=== PATIENT | male | born 1955 | race Caucasian/White ===

== ENCOUNTER 2016-11-24 22:34 | Emergency (ER) | payer MEDICAID, OTHER ==
[2016-11-24 22:34] VITALS: BMI 26.5
[2016-11-24 22:44] VITALS: BP 162/90; PULSE 82; RESP 20; TEMP 97.7; O2SAT 98
--- NOTE | 2016-11-24 23:44 | C.PDOC ---
History Of Present Illness 60 year old male with a Hx of chronic hemorrhoids who presents to the ER with a complaint of rectal pain.Patient states she has been using percocet, stool softener, and hemorrhoid cream with no relief to pain. Patient has an appointment with a colorectal surgeon on 12/09; however, feels he cannot wait, is requesting evaluation and medication for symptoms. Denies rectal bleeding, diarrhea, or constipation. Time Seen by Provider: 11/24/16 22:59 Chief Complaint (Nursing): Male Genitourinary History Per: Patient History/Exam Limitations: no limitations Onset/Duration Of Symptoms: Days Current Symptoms Are (Timing): Still Present Quality Of Discomfort: Unable To Describe Associated Symptoms: denies: Diarrhea, Constipation Alleviating Factors: None Recent travel outside of the [place]: No Past Medical History Reviewed: Historical Data, Nursing Documentation, Vital Signs Vital Signs: Last Vital Signs Temp 97.7 F 11/24/16 22:35 Pulse 82 11/24/16 22:35 Resp 20 11/24/16 22:35 BP 162/90 H 11/24/16 22:35 Pulse Ox 98 11/25/16 01:26 - Medical History PMH: Back Problems, HTN, Hypercholesterolemia, Migraine Surgical History: No Surg Hx Family History: States: Unknown Family Hx - Social History Hx Tobacco Use: No Hx Alcohol Use: No Hx Substance Use: No - Immunization History Hx Tetanus Toxoid Vaccination: No Hx Influenza Vaccination: No Hx Pneumococcal Vaccination: No Review Of Systems Gastrointestinal: Positive for: Rectal Pain. Negative for: Diarrhea, Melena, Hematochezia Physical Exam - Physical Exam Appears: Non-toxic Skin: Normal Color, Warm, Dry Head: Atraumatic, Normacephalic Eye(s): bilateral: Normal Inspection Oral Mucosa: Moist Cardiovascular: Rhythm Regular, No Murmur Respiratory: Normal Breath Sounds, No Rales, No Rhonchi, No Wheezing Gastrointestinal/Abdominal: Soft, No Tenderness Rectal: No Blood Streaked Stool, Hemorrhoids (External, nonthrombosed), No Other (Bleeding, swelling, mass) Neurological/Psych: Oriented x3, Normal Speech, Normal Cognition ED Course And Treatment O2 Sat by Pulse Oximetry: 98 (Room air) Pulse Ox Interpretation: Normal Progress Note: Toradol administered. Patient advised to eat a lot of fiber and to continue use of stool softener. Patient given Rx for rectal suppository and instucted to follow up with appointment as scheduled. Disposition Counseled Patient/Family Regarding: Diagnosis, Need For Followup, Rx Given - Disposition Disposition: HOME/ ROUTINE Disposition Time: 23:41 Condition: STABLE Additional Instructions: Please follow up with PMD DO SITZ baths Use suppositories Return to ER if worse Prescriptions: Hydrocortisone [Anusol-HC] 25 mg RC BID #20 sup Instructions: Hemorrhoids (ED) Forms: [facility] (Maltese) Print Language: ANGOLAN - Clinical Impression Clinical Impression: Hemorrhoids - Scribe Statement The provider has reviewed the documentation as recorded by the Scribe Ray Ledezma All medical record entries made by the Domenicaibbrenton were at my direction and personally dictated by me. I have reviewed the chart and agree that the record accurately reflects my personal performance of the history, physical exam, medical decision making, and the department course for this patient. I have also personally directed, reviewed, and agree with the discharge instructions and disposition.
== END 2016-11-25 00:20 | disposition home or self-care (01) ==
LOC: C.ER 22:34
DX: K64.9 Unspecified hemorrhoids (principal)
CPT/HCPCS: 96372; 99283; J1885

== ENCOUNTER 2017-12-14 08:16 | Day surgery (SDC) | payer OTHER ==
[2017-12-14] MEDS ORDERED: Bupivacaine-Epi 0.5%-1:200,000 PF Inj ONE (10:09)
[2017-12-14] MEDS ORDERED: Midazolam 2 MG/2 ML VIAL ONE (10:24)
[2017-12-14] MEDS ORDERED: Propofol 10 mg/ml Inj (20 ML) ONE (10:24)
[2017-12-14] MEDS ORDERED: ceFAZolin IV 1 gm in Dextrose 1 GM/50 ML BAG IVPB ONE (10:33)
[2017-12-14] MEDS ORDERED: HYDROmorphone 0.5 mg/0.5 ml ISec IVP PRN (11:18)
[2017-12-14] MEDS ORDERED: HYDROmorphone 0.5 mg/0.5 ml ISec ONE (11:19)
[2017-12-14] MEDS ORDERED: Lactated Ringer's 1,000 ML IV SCH (11:30)
[2017-12-14 12:19] VITALS: PULSE 55
[2017-12-14 12:23] VITALS: RESP 16; TEMP 97.6
[2017-12-14 15:47] VITALS: BP 147/85; O2SAT 100
--- NOTE | 2017-12-14 19:37 | OP ---
Copied To: Rafael Hansen MD Attending MD: Rafael Hansen MD PROCEDURE DATE: 12/14/2017 PREOPERATIVE DIAGNOSIS: A large lipomatous mass, base of neck posteriorly. POSTOPERATIVE DIAGNOSIS: A large lipoma. PROCEDURE PERFORMED: Excision. FINDINGS: This patient has been complaining of some pain on the shoulder going down to the arm and he associates this with a relatively large mass, measuring approximately 4 x 4 cm in size, located on the base of the neck posteriorly overlying the trapezius muscle. DESCRIPTION OF PROCEDURE: Under local anesthesia, utilizing lidocaine 2% with IV sedation, the patient was prepared and draped in usual sterile fashion. About 3 inch incision was made over the mass, extended down to subcutaneous tissue. Bleeding was controlled with electrocautery. The mass was then identified. It was dissected free and it was extracted, getting it off the superficial portion of the trapezius muscle on the right side. Bleeding was controlled with pressure and electrocautery, and then, the wound was then closed utilizing multiple interrupted sutures of 2-0 Vicryl to obliterate the space and then the skin was closed with multiple skin marisol. The estimated blood loss about 200 mL. The patient tolerated the procedure well, and left the operating room in good condition. Rafael Hansen MD
== END 2017-12-14 14:30 | disposition home or self-care (01) ==
LOC: C.SDS 08:16
PROVIDERS: ATTEND Surgery
DX: D17.1 Benign lipomatous neoplasm of skin and subcutaneous tissue of trunk (principal)
CPT/HCPCS: 11424; 88304; J0690; J1170; J2250; J2704; J3010

== ENCOUNTER 2017-12-20 12:21 | Observation (INO) | payer OTHER ==
[2017-12-20 12:21] VITALS: BMI 26.5
[2017-12-20 13:52] LABS: BASO % 0.2 % (0.0-2.0); EOS % 0.2 % (0.0-4.0); HEMOGLOBIN 14.3 g/dL (12.0-18.0); LYMPH # 0.8 K/uL (1.0-4.3); MEAN CELL VOLUME 92.8 fL (80.0-94.0); MEAN CORPUSCULAR HEMOGLOBIN 32.3 pg (27.0-31.0); MEAN CORPUSCULAR HGB CONC 34.8 g/dL (33.0-37.0); MEAN PLATELET VOLUME 8.4 fL (7.2-11.7); MONO # 0.9 K/uL (0.0-0.8); MONO % 6.7 % (0.0-10.0); NEUT # 11.8 K/uL (1.8-7.0); NEUT % 86.9 % (50.0-75.0); PLATELET COUNT 227 K/uL (130-400); RBC 4.41 Mil/uL (4.40-5.90); RED CELL DISTRIBUTION WIDTH 13.1 % (11.5-14.5)
[2017-12-20 13:53] LABS: WHITE BLOOD COUNT 13.5 K/uL (4.8-10.8)
--- NOTE | 2017-12-20 13:53 | C.PDOC ---
History Of Present Illness 61 year old male with a history of HTN presents to the emergency department with complaints of feeling dizzy, lightheaded, near-syncope, and having chest pain. Patient states that he was walking on his way to visit a doctor for a wound check on the back of his neck, however when he started experiencing these symptoms he decided to go back home. Patient states that once he arrived home he began experiencing chest pain. He has no complaints at this moment. Patient states that he had marisol placed in the back of his neck five days ago. Time Seen by Provider: 12/20/17 13:04 Chief Complaint (Nursing): Syncope History/Exam Limitations: no limitations Onset/Duration Of Symptoms: Hrs Current Symptoms Are (Timing): Still Present Activity At Onset Of Symptoms: Walking Associated Symptoms Preceding Syncopal Episode: Lightheadedness, Other ( dizziness) Seizure Or Post-ictal Symptoms: None Past Medical History Reviewed: Historical Data, Nursing Documentation, Vital Signs Vital Signs: Last Vital Signs Temp 97.6 F 12/21/17 07:15 Pulse 64 12/21/17 07:18 Resp 20 12/21/17 07:15 BP 101/63 12/21/17 07:15 Pulse Ox 98 12/21/17 08:00 - Medical History PMH: Back Problems, Depression, HTN, Hypercholesterolemia, Migraine Denies: Chronic Kidney Disease Surgical History: No Surg Hx Family History: States: No Known Family Hx - Social History Hx Tobacco Use: No Hx Alcohol Use: No Hx Substance Use: No - Immunization History Hx Tetanus Toxoid Vaccination: No Hx Influenza Vaccination: No Hx Pneumococcal Vaccination: No Review Of Systems Except As Marked, All Systems Reviewed And Found Negative. Cardiovascular: Positive for: Chest Pain Neurological: Positive for: Dizziness, Other (lightheaded) Physical Exam - Physical Exam Appears: Non-toxic, No Acute Distress Skin: Warm, Dry Head: Atraumatic, Normacephalic Eye(s): bilateral: Normal Inspection Neck: Supple, Other (5 marisol placed in posterior neck, site is clear, dry, intact) Chest: Symmetrical Cardiovascular: Rhythm Regular, No Murmur Respiratory: Normal Breath Sounds, No Rales, No Rhonchi, No Wheezing Extremity: Normal ROM Neurological/Psych: Oriented x3, Normal Speech, Normal Cognition ED Course And Treatment - Laboratory Results Result Diagrams: 12/21/17 07:06 12/21/17 07:06 O2 Sat by Pulse Oximetry: 99 (RA) Pulse Ox Interpretation: Normal Medical Decision Making Medical Decision Making: Assessment: Near Syncope Plan: CT Head w/o Contrast EKG BNP CMP Magnesium TSH Troponin CBC CXR One View Urinalysis Disposition - Disposition Disposition: HOSPITALIZED Disposition Time: 10:00 Condition: FAIR - Clinical Impression Clinical Impression: Syncope - Scribe Statement The provider has reviewed the documentation as recorded by the Scribe (Matthew Bashir) Provider Attestation: All medical record entries made by the Scribe were at my direction and personally dictated by me. I have reviewed the chart and agree that the record accurately reflects my personal performance of the history, physical exam, medical decision making, and the department course for this patient. I have also personally directed, reviewed, and agree with the discharge instructions and disposition.
[2017-12-20 14:03] LABS: ALB/GLOB RATIO 1.5 (1.0-2.1); ALBUMIN 4.3 g/dL (3.5-5.0); ALT/SGPT 38 U/L (21-72); AST/SGOT 30 U/L (17-59); BLOOD UREA NITROGEN 13 mg/dL (9-20); CALCIUM 9.3 mg/dl (8.6-10.4); GFR NON-AFRICAN AMERICAN > 60
[2017-12-20 14:16] LABS: B-TYPE NATRIURETIC PEPTIDE 43.6 pg/mL (0-900)
--- NOTE | 2017-12-20 14:34 | CT ---
Date of service: 12/20/2017 PROCEDURE: CT HEAD WITHOUT CONTRAST. HISTORY: dizziness COMPARISON: 12/30/2015 TECHNIQUE: Axial computed tomography images were obtained through the head/brain without intravenous contrast. Radiation dose: Total exam DLP = 856.48 mGy-cm. This CT exam was performed using one or more of the following dose reduction techniques: Automated exposure control, adjustment of the mA and/or kV according to patient size, and/or use of iterative reconstruction technique. FINDINGS: HEMORRHAGE: No intracranial hemorrhage. BRAIN: No mass effect or edema. No atrophy or chronic microvascular ischemic changes. VENTRICLES: Unremarkable. No hydrocephalus. CALVARIUM: Unremarkable. PARANASAL SINUSES: Unremarkable as visualized. No significant inflammatory changes. MASTOID AIR CELLS: Unremarkable as visualized. No inflammatory changes. OTHER FINDINGS: None. IMPRESSION: Normal CT of the Head. No intracranial mass, hemorrhage or evidence of acute infarct.
[2017-12-20 14:46] LABS: BANDS 4 % (0-2); LYMPHOCYTE 4 % (20-40); MONOCYTE 7 % (0-10); NEUTROPHIL 85 % (50-75); PLATELET ESTIMATE NORMAL (NORMAL); TOTAL CELLS COUNTED 100
--- NOTE | 2017-12-20 15:05 | RAD ---
Date of service: 12/20/2017 PROCEDURE: CHEST RADIOGRAPH, 1 VIEW HISTORY: SOB COMPARISON: 06/14/2016 FINDINGS: LUNGS: The left costophrenic angle is more clearly defined on the current study. Some chronic minimal left inferolateral pleural thickening is possible. No interval suspect pathology here suggested. PLEURA: No pneumothorax. CARDIOVASCULAR: Minimal left ventricular enlargement suspect. OSSEOUS STRUCTURES: Thoracic spondylosis. Bilateral shoulder arthrosis. VISUALIZED UPPER ABDOMEN: Normal. OTHER FINDINGS: At least 3 punctate hyperdensities project over the left knee lateral and inferior harleen thorax possible foreign body pieces-not significantly changed dating back to 2014. IMPRESSION: No interval pathology noted.
--- NOTE | 2017-12-20 15:13 | CP.PCM.HP ---
History of Present Illness - History of Present Illness History of Present Illness: H&P 61 year old male with past medical history of HTN, HLD presented to hospital for chest pain with exertion. Patient was walking to a doctor's appointment when he developed sudden dizziness, lightheadedness. He decided to return back home and by the time he got there, he developed chest pain. Patient then called the ambulance and was brought to ED. Patient describes CP as sharp pain located on left side of chest and radiated to back. CP was accompanied with diaphoresis. CP resolved by the time he came to ED. Patient described the dizziness as the room was spinning. Patient denied having any syncope. Patient denied having any new numbness/tingling in extremities, focal weakness, headache, confusion, difficulty walking, difficulty with speech. Patient states that he was walking to Dr. Hansen's clinic for a wound check for a lipoma removal surgery he had done recently. Currently, pt denies having any CP, SOB, abd pain, N/V/D/C, F/C, HUANG, weakness/ numbness/tingling in extremities, change sin vision or hearing. PMHx: stated above Sx: neck lipoma removal by Dr. Hansen on 12/14/17. Left shoulder lipoma removal 2015 Social:Denies tobacco, ETOH or drug use PMD: Dr. Sultana Martinez Med: Flomaz 0.4 mg po qd, Ketotifen eye drops, Benazepril 20 mg po qd, Cymbalta 30 mg po qd, Fioricet 1 qd, lipitro 20 mg po qd, omperazole 20 mg po qd, mirtazapine 15 mg po qd, gabapentin 300 mg po qd multivitamin qd [facility] Present on Admission - Present on Admission Any Indicators Present on Admission: No Review of Systems - Constitutional Constitutional: absent: Chills, Fever - EENT Eyes: absent: Blurred Vision, Change in Vision Ears: absent: Decreased Hearing, Dizziness Nose/Mouth/Throat: absent: Nasal Congestion, Nasal Discharge, Sore Throat - Cardiovascular Cardiovascular: Chest Pain, Diaphoresis, Lightheadedness. absent: Chest Pain at Rest, Dyspnea, Leg Edema, Palpitations, Pedal Edema - Respiratory Respiratory: absent: Cough, Dyspnea, Wheezing, Chest Congestion, Pain with Coughing - Gastrointestinal Gastrointestinal: absent: Abdominal Pain, Constipation, Diarrhea, Nausea, Vomiting - Genitourinary Genitourinary: absent: Dysuria, Urinary Frequency, Urinary Urgency - Musculoskeletal Musculoskeletal: Neck Pain (at wound site ). absent: Stiffness, Tingling - Integumentary Integumentary: Wounds (surgical wound on neck on left side ) - Neurological Neurological: Vertigo. absent: Abnormal Gait, Abnormal Hearing, Abnormal Movements, Abnormal Speech, Confusion, Dizziness, Numbness, Headaches, Paresthesias, Sensory Deficit, Syncope, Tingling, Weakness - Psychiatric Psychiatric: absent: Anxiety, Depression Past Patient History - Past Medical History & Family History Past Medical History?: Yes - Past Social History Smoking Status: Never Smoked Chewing Tobacco Use: No Cigar Use: No Alcohol: None Drugs: Denies - CARDIAC Hx Hypercholesterolemia: Yes Hx Hypertension: Yes - PULMONARY Hx Respiratory Disorders: No - NEUROLOGICAL Hx Migraine: Yes - HEENT Hx HEENT Problems: No - RENAL Hx Chronic Kidney Disease: No - ENDOCRINE/METABOLIC Hx Endocrine Disorders: No - HEMATOLOGICAL/ONCOLOGICAL Hx Blood Disorders: No - INTEGUMENTARY Hx Dermatological Problems: Yes Other/Comment: HX: LARGE MASS LEFT SHOULDER. HX: LARGE MASS RIGHT SHOULDER - MUSCULOSKELETAL/RHEUMATOLOGICAL Hx Musculoskeletal Disorders: Yes Hx Back Pain: Yes Hx Falls: No - GASTROINTESTINAL Hx Gastrointestinal Disorders: No - GENITOURINARY/GYNECOLOGICAL Hx Genitourinary Disorders: Yes Hx Prostate Problems: Yes (ENLARGED PROSTATE) - PSYCHIATRIC Hx Depression: Yes Hx Substance Use: No - SURGICAL HISTORY Hx Surgeries: Yes Other/Comment: 05/22/2015, LEFT SHOULDER LYPOMA REMOVED BY DR. HANSEN - ANESTHESIA Hx Anesthesia: Yes Hx Anesthesia Reactions: No Hx Malignant Hyperthermia: No Meds Allergies/Adverse Reactions: Allergies Allergy/AdvReac Type Severity Reaction Status Date / Time No Known Allergies Allergy Verified 12/20/17 12:30 Physical Exam - Constitutional Appears: Non-toxic, No Acute Distress - Head Exam Head Exam: ATRAUMATIC, NORMOCEPHALIC - Eye Exam Eye Exam: EOMI Pupil Exam: NORMAL ACCOMODATION, PERRL - ENT Exam ENT Exam: Mucous Membranes Moist - Respiratory Exam Respiratory Exam: Clear to Auscultation Bilateral. absent: Accessory Muscle Use , Rales, Rhonchi, Wheezes, Respiratory Distress - Cardiovascular Exam Cardiovascular Exam: REGULAR RHYTHM, +S1, +S2. absent: Diastolic murmur, Gallop , Rubs, Systolic Murmur - GI/Abdominal Exam GI & Abdominal Exam: Normal Bowel Sounds, Soft. absent: Distended, Firm, Guarding, Rigid, Tenderness - Extremities Exam Extremities exam: Negative for: pedal edema, tenderness - Neurological Exam Neurological exam: Alert, CN II-XII Intact, Normal Gait, Oriented x3, Reflexes Normal - Psychiatric Exam Psychiatric exam: Normal Affect, Normal Mood - Skin Skin Exam: Dry, Intact, Normal Color, Warm Additional comments: left sided neck wound in tact. no erythema no swelling. marisol in place. Results - Vital Signs Recent Vital Signs: Last Vital Signs Temp 98.4 F 12/20/17 12:30 Pulse 77 12/20/17 12:30 Resp 20 12/20/17 12:30 BP 133/88 12/20/17 12:30 Pulse Ox 99 12/20/17 14:00 - Labs Result Diagrams: 12/20/17 13:48 12/20/17 13:48 Labs: Laboratory Results - last 24 hr 12/20/17 12/20/17 13:48 13:48 WBC 13.5 H D RBC 4.41 Hgb 14.3 Hct 40.9 MCV 92.8 MCH 32.3 H MCHC 34.8 RDW 13.1 Plt Count 227 MPV 8.4 Neut % (Auto) 86.9 H Lymph % (Auto) 6.0 L Blackford % (Auto) 6.7 Eos % (Auto) 0.2 Baso % (Auto) 0.2 Neut # (Auto) 11.8 H Lymph # (Auto) 0.8 L Blackford # (Auto) 0.9 H Eos # (Auto) 0.0 Baso # (Auto) 0.0 Neutrophils % (Manual) 85 H Band Neutrophils % 4 H Lymphocytes % (Manual) 4 L Monocytes % (Manual) 7 Platelet Estimate Normal RBC Morphology Normal Sodium 142 Potassium 4.4 Chloride 106 Carbon Dioxide 25 Anion Gap 15 BUN 13 Creatinine 0.9 Est GFR ( Amer) > 60 Est GFR (Non-Af Amer) > 60 Random Glucose 113 H Calcium 9.3 Magnesium 1.8 Total Bilirubin 0.7 AST 30 ALT 38 Alkaline Phosphatase 80 Troponin I < 0.0120 NT-Pro-B Natriuret Pep 43.6 Total Protein 7.2 Albumin 4.3 Globulin 2.9 Albumin/Globulin Ratio 1.5 TSH 3rd Generation 1.01 Assessment & Plan - Assessment and Plan (Free Text) Assessment: 61 year old male with past medical history of HTN, HLD, depression, migraine headaches, cervical disc herniation BPH is admitted for vertigo and chest pain rule out ACS. CT scan on admission is normal. Initial troponins and EKG on admission were also normal. Vertigo - Patient's symptoms have resolved - Will check orthostatic vital signs - Will check cardiac enzymes and ekg x 3 and echo - will consider consulting neurology Chest pain r/u ACS - SAI score of 0 with 5% risk at day 14 of all cause mortality - Will check serial troponins and EKG. Initial trop and EKG was normal - Will check echo. - Echo from 2016 showed normal LV EF of 65% - Aspirin 325 stat - Nitro SL prn for angina HTN - Continue KEVAN inhibitor therapy with lisinopril 10 mg po qd HLD - Will check lipid panel and hgbA1c - Continue statin therapy with Crestor 10 mg po qd Depression - Continue home mirtazapine 15 mg po qd. However, due to side effect of hypotension, consider switching to different medication Migraine headaches - Will hold fioricet for now Neuropathy - Continue gabapentin 300 mg po hs BPH - Continue home medication flomax Prophylaxis - Pepcid 20 mg po bid - SCDs, heparin sc q12 Case will be discussed with attending, Dr. Dias. All orders and management per Dr. Dias - Date & Time Date: 12/20/17 Time: 16:33
[2017-12-20] MEDS ORDERED: Aspirin 325 mg EC Tablets PO STA (16:38)
[2017-12-20 20:01] LABS: CK-MB 1.31 ng/mL (0.0-3.38)
[2017-12-20 23:03] LABS: URINE BILIRUBIN NEGATIVE (NEGATIVE); URINE BLOOD NEGATIVE (NEGATIVE); URINE CLARITY Clear (Clear); URINE COLOR Yellow (YELLOW); URINE GLUCOSE (UA) NORMAL (Normal); URINE LEUKOCYTE ESTERASE NEG Leu/uL (Negative); URINE PROTEIN NEGATIVE (NEGATIVE); URINE UROBILINOGEN NORMAL mg/dL (0.2-1.0)
[2017-12-21 02:21] LABS: CK-MB 1.28 ng/mL (0.0-3.38)
[2017-12-21 07:28] LABS: BASO % 0.7 % (0.0-2.0); EOS # 0.1 K/uL (0.0-0.7); EOS % 2.6 % (0.0-4.0); HEMOGLOBIN 13.4 g/dL (12.0-18.0); MEAN CELL VOLUME 92.9 fL (80.0-94.0); MEAN CORPUSCULAR HEMOGLOBIN 32.8 pg (27.0-31.0); MEAN CORPUSCULAR HGB CONC 35.3 g/dL (33.0-37.0); MEAN PLATELET VOLUME 8.9 fL (7.2-11.7); MONO # 0.5 K/uL (0.0-0.8); MONO % 10.2 % (0.0-10.0); NEUT # 1.9 K/uL (1.8-7.0); NEUT % 41.5 % (50.0-75.0); NRBC % 0.1 % (0.0-2.0); RBC 4.09 Mil/uL (4.40-5.90)
[2017-12-21 07:34] LABS: WHITE BLOOD COUNT 4.5 K/uL (4.8-10.8)
[2017-12-21 07:41] LABS: ALB/GLOB RATIO 1.4 (1.0-2.1); ALBUMIN 3.5 g/dL (3.5-5.0); ALT/SGPT 39 U/L (21-72); AST/SGOT 26 U/L (17-59); BLOOD UREA NITROGEN 19 mg/dL (9-20); CALCIUM 9.1 mg/dl (8.6-10.4); GFR NON-AFRICAN AMERICAN > 60; HDL CHOLESTEROL 31 mg/dL (30-70)
[2017-12-21 07:46] LABS: LDL CHOLESTEROL 87 mg/dL (0-129)
--- NOTE | 2017-12-21 10:36 | CP.PCM.PN ---
Subjective - Date & Time of Evaluation Date of Evaluation: 12/21/17 Time of Evaluation: 09:30 - Subjective Subjective: PGY -1 Medicine Progress Note for Dr. Dias. Patient was seen and examined today at bedside. No acute events overnight and complaints. Patient reports feeling better today with no chest pain or dizziness. Patient just came back from his ECHO and reports having mild low back pain. Patient reports neck pain at the site of his surgery along with a mild headache. States surgery removed dressing this AM. Patient reports chronic left arm tingling from previous neck surgeries but no new numbness of tingling. Patient denies any shortness of breath, weakness, confusion or chest pain. Objective - Vital Signs/Intake and Output Vital Signs (last 24 hours): Temp Pulse Resp BP Pulse Ox 97.6 F 64 20 101/63 98 12/21/17 07:15 12/21/17 07:18 12/21/17 07:15 12/21/17 07:15 12/21/17 08:00 - Medications Medications: Current Medications Famotidine (Pepcid) 20 mg PO BID [facility] Last Admin: 12/21/17 10:16 Dose: 20 mg Gabapentin (Neurontin) 300 mg PO DAILY [facility] Last Admin: 12/21/17 10:15 Dose: 300 mg Heparin Sodium (Porcine) (Heparin) 5,000 units SC Q12 [facility] Last Admin: 12/21/17 10:14 Dose: 5,000 units Lisinopril (Zestril) 10 mg PO DAILY [facility] Last Admin: 12/21/17 10:16 Dose: Not Given Meclizine HCl (Antivert) 12.5 mg PO TID [facility] Last Admin: 12/21/17 10:16 Dose: 12.5 mg Mirtazapine (Remeron) 15 mg PO HS [facility] Last Admin: 12/20/17 21:18 Dose: 15 mg Nitroglycerin (Nitrostat Sl Tab) 0.4 mg SL Q5M PRN PRN Reason: Other, CHEST PAIN Rosuvastatin Calcium (Crestor) 10 mg PO HS [facility] Last Admin: 12/20/17 21:18 Dose: 10 mg Tamsulosin HCl (Flomax) 0.4 mg PO DAILY [facility] Last Admin: 12/21/17 10:15 Dose: 0.4 mg - Labs Labs: 12/21/17 07:06 12/21/17 07:06 PT 11.0 SECONDS (9.7-12.2) 12/20/17 17:02 INR 1.0 12/20/17 17:02 APTT 29 SECONDS (21-34) 12/20/17 17:02 - Constitutional Appears: Well, Non-toxic, No Acute Distress - Head Exam Head Exam: ATRAUMATIC, NORMOCEPHALIC - ENT Exam ENT Exam: Mucous Membranes Moist - Neck Exam Neck Exam: Tenderness Additional comments: Mild erythema and swelling to are above incision - Respiratory Exam Respiratory Exam: Clear to Ausculation Bilateral, NORMAL BREATHING PATTERN. absent: Rales, Rhonchi, Wheezes - Cardiovascular Exam Cardiovascular Exam: REGULAR RHYTHM, RRR, +S1, +S2. absent: Irregular Rhythm, Rubs, Murmur - GI/Abdominal Exam GI & Abdominal Exam: Soft, Normal Bowel Sounds. absent: Guarding, Rigid, Tenderness - Extremities Exam Extremities Exam: Normal Inspection. absent: Calf Tenderness, Pedal Edema, Tenderness - Back Exam Back Exam: paraspinal tenderness - Neurological Exam Neurological Exam: Alert, Awake, Normal Gait, Oriented x3 - Psychiatric Exam Psychiatric exam: Normal Affect, Normal Mood. absent: Agitated, Depressed - Skin Skin Exam: Dry, Intact, Normal Color Additional comments: Surgical dressing clean, dry, incision with intact marisol x5. Assessment and Plan - Assessment and Plan (Free Text) Assessment: Assessment: Patient is a 61 yo M with history of HTN, HLD, migraine and depression who is admitted for dizziness and chest pain rule out ACS. Plan: Plan: 1) Chest pain rule out ACS -Chest pain resolved -Troponins negative x3 -EKG negative -CT negative -ECHO ___. last in 2016 revealed normal EF of 65% -Continue ASA 325 and Nitro SL prn for angina 2) Vertigo -Symptoms resolved -Negative for orthostatic hypotension -Troponins negative x3 3) HTN -Continue home medication and dose of Lisinopril 4) HLD -Triglycerides elevated at 235 -Continue statin therapy with Crestor 10 mg -Follow A1C 5) Migraine headache -Hold home medication Fioricet 6) Depression -Continue home medication and dose of Mirtazapine. -Monitor blood pressure as Mirtazapine can cause hypotension. last / 7) BPH -Continue home medication and dose of Flomax
[2017-12-21 11:11] VITALS: O2SAT 99
[2017-12-21 12:02] LABS: EOS # 0.1 K/uL (0.0-0.7); EOS % 2.3 % (0.0-4.0); HEMOGLOBIN 14.6 g/dL (12.0-18.0); LYMPH # 1.9 K/uL (1.0-4.3); LYMPH % 42.3 % (20.0-40.0); MEAN CELL VOLUME 93.2 fL (80.0-94.0); MEAN CORPUSCULAR HEMOGLOBIN 32.3 pg (27.0-31.0); MEAN CORPUSCULAR HGB CONC 34.7 g/dL (33.0-37.0); MEAN PLATELET VOLUME 9.1 fL (7.2-11.7); MONO # 0.4 K/uL (0.0-0.8); MONO % 8.9 % (0.0-10.0); NEUT % 45.5 % (50.0-75.0); NRBC % 0.4 % (0.0-2.0); RBC 4.51 Mil/uL (4.40-5.90); RED CELL DISTRIBUTION WIDTH 13.1 % (11.5-14.5); WHITE BLOOD COUNT 4.4 K/uL (4.8-10.8)
[2017-12-21] MEDS ORDERED: Oxycodone/Acetaminophen 5/325 mg Tab PO ONE (13:15)
[2017-12-21 15:42] VITALS: BP 143/77; PULSE 63; RESP 100; TEMP 97.7
--- NOTE | 2017-12-21 18:29 | CP.PCM.DIS ---
Provider - Provider Date of Admission: 12/20/17 14:50 Attending physician: Edwar Burciaga Jr, MD Time Spent in preparation of Discharge (in minutes): 45 Hospital Course - Lab Results Lab Results: Most Recent Lab Values WBC 4.4 K/uL (4.8-10.8) L 12/21/17 11:42 RBC 4.51 Mil/uL (4.40-5.90) 12/21/17 11:42 Hgb 14.6 g/dL (12.0-18.0) 12/21/17 11:42 Hct 42.0 % (35.0-51.0) 12/21/17 11:42 MCV 93.2 fL (80.0-94.0) 12/21/17 11:42 MCH 32.3 pg (27.0-31.0) H 12/21/17 11:42 MCHC 34.7 g/dL (33.0-37.0) 12/21/17 11:42 RDW 13.1 % (11.5-14.5) 12/21/17 11:42 Plt Count 224 K/uL (130-400) 12/21/17 11:42 MPV 9.1 fL (7.2-11.7) 12/21/17 11:42 Neut % (Auto) 45.5 % (50.0-75.0) L 12/21/17 11:42 Lymph % (Auto) 42.3 % (20.0-40.0) H 12/21/17 11:42 [place] % (Auto) 8.9 % (0.0-10.0) 12/21/17 11:42 Eos % (Auto) 2.3 % (0.0-4.0) 12/21/17 11:42 Baso % (Auto) 1.0 % (0.0-2.0) 12/21/17 11:42 Neut # (Auto) 2.0 K/uL (1.8-7.0) 12/21/17 11:42 Lymph # (Auto) 1.9 K/uL (1.0-4.3) 12/21/17 11:42 Fountain # (Auto) 0.4 K/uL (0.0-0.8) 12/21/17 11:42 Eos # (Auto) 0.1 K/uL (0.0-0.7) 12/21/17 11:42 Baso # (Auto) 0.0 K/uL (0.0-0.2) 12/21/17 11:42 Neutrophils % (Manual) 85 % (50-75) H 12/20/17 13:48 Band Neutrophils % 4 % (0-2) H 12/20/17 13:48 Lymphocytes % (Manual) 4 % (20-40) L 12/20/17 13:48 Monocytes % (Manual) 7 % (0-10) 12/20/17 13:48 Platelet Estimate Normal (NORMAL) 12/20/17 13:48 RBC Morphology Normal 12/20/17 13:48 PT 11.0 SECONDS (9.7-12.2) 12/20/17 17:02 INR 1.0 12/20/17 17:02 APTT 29 SECONDS (21-34) 12/20/17 17:02 Sodium 142 mmol/L (132-148) 12/21/17 07:06 Potassium 4.0 mmol/L (3.6-5.2) 12/21/17 07:06 Chloride 108 mmol/L (98-107) H 12/21/17 07:06 Carbon Dioxide 25 mmol/L (22-30) 12/21/17 07:06 Anion Gap 14 (10-20) 12/21/17 07:06 BUN 19 mg/dL (9-20) 12/21/17 07:06 Creatinine 1.1 mg/dL (0.8-1.5) 12/21/17 07:06 Est GFR ( Amer) > 60 12/21/17 07:06 Est GFR (Non-Af Amer) > 60 12/21/17 07:06 Random Glucose 94 mg/dL (75-110) 12/21/17 07:06 Hemoglobin A1c 5.2 % (4.2-6.5) 12/21/17 07:06 Calcium 9.1 mg/dl (8.6-10.4) 12/21/17 07:06 Magnesium 1.8 mg/dL (1.6-2.3) 12/20/17 13:48 Total Bilirubin 0.5 mg/dL (0.2-1.3) 12/21/17 07:06 AST 26 U/L (17-59) 12/21/17 07:06 ALT 39 U/L (21-72) 12/21/17 07:06 Alkaline Phosphatase 81 U/L (38-126) 12/21/17 07:06 Total Creatine Kinase 184 U/L (55-170) H 12/21/17 01:45 CK-MB (Mass) 1.28 ng/mL (0.0-3.38) 12/21/17 01:45 Troponin I < 0.0120 ng/mL (0.00-0.120) 12/21/17 01:45 NT-Pro-B Natriuret Pep 43.6 pg/mL (0-900) 12/20/17 13:48 Total Protein 6.1 g/dL (6.3-8.3) L 12/21/17 07:06 Albumin 3.5 g/dL (3.5-5.0) 12/21/17 07:06 Globulin 2.5 gm/dL (2.2-3.9) 12/21/17 07:06 Albumin/Globulin Ratio 1.4 (1.0-2.1) 12/21/17 07:06 Triglycerides 235 mg/dL (0-149) H D 12/21/17 07:06 Cholesterol 157 mg/dL (0-199) 12/21/17 07:06 LDL Cholesterol Direct 87 mg/dL (0-129) 12/21/17 07:06 HDL Cholesterol 31 mg/dL (30-70) 12/21/17 07:06 TSH 3rd Generation 1.01 mIU/L (0.46-4.68) 12/20/17 13:48 Urine Color Yellow (YELLOW) 12/20/17 22:45 Urine Clarity Clear (Clear) 12/20/17 22:45 Urine pH 6.0 (5.0-8.0) 12/20/17 22:45 Ur Specific [place] 1.013 (1.003-1.030) 12/20/17 22:45 Urine Protein Negative mg/dL (NEGATIVE) 12/20/17 22:45 Urine Glucose (UA) Normal mg/dL (Normal) 12/20/17 22:45 Urine Ketones Negative mg/dL (NEGATIVE) 12/20/17 22:45 Urine Blood Negative (NEGATIVE) 12/20/17 22:45 Urine Nitrate Negative (NEGATIVE) 12/20/17 22:45 Urine Bilirubin Negative (NEGATIVE) 12/20/17 22:45 Urine Urobilinogen Normal mg/dL (0.2-1.0) 12/20/17 22:45 Ur Leukocyte Esterase Neg Issac/uL (Negative) 12/20/17 22:45 Urine WBC (Auto) < 1 /hpf (0-5) 12/20/17 22:45 Urine RBC (Auto) < 1 /hpf (0-3) 12/20/17 22:45 - Hospital Course Hospital Course: 61 year old male with past medical history of HTN, HLD presented to hospital for chest pain with exertion. Patient was walking to a doctor's appointment when he developed sudden dizziness, lightheadedness. He decided to return back home and by the time he got there, he developed chest pain. Patient then called the ambulance and was brought to ED. Patient describes CP as sharp pain located on left side of chest and radiated to back. CP was accompanied with diaphoresis. CP resolved by the time he came to ED. Patient described the dizziness as the room was spinning. Patient denied having any syncope. Patient denied having any new numbness/tingling in extremities, focal weakness, headache, confusion, difficulty walking, difficulty with speech. Patient states that he was walking to Dr. Hansen's clinic for a wound check for a lipoma removal surgery he had done recently. Serial troponins and EKGs negative for ACS. CXR and Head CT negative for acute changes or pathologies. ECHO read by Dr. Burciaga unremarkable. As patient was clinically stable and symptoms resolved, complied with patient request to go home with follow up in the office as outpatient. Primary Diagnosis: Syncope Patient is clear for discharge per Dr. Burciaga. Patient is to continue all home meds and is not being discharged with any new medications. Patient is to follow up with Dr. Burciaga to establish PMD care. He should also follow up with Dr. Hansen to see how his lipoma removal is going. If symptoms return or worsen, please return to the ED. This is a summary of the hospital course. Please refer to the EMR for more details. - Date & Time of H&P Date of H&P: 12/21/17 Time of H&P: 16:20 Discharge Exam - Head Exam Head Exam: ATRAUMATIC, NORMOCEPHALIC - ENT Exam ENT Exam: Mucous Membranes Moist - Neck Exam Neck exam: Tenderness Additional comments: Mild erythema and swelling to are above incision - Respiratory Exam Respiratory Exam: Clear to PA & Lateral, NORMAL BREATHING PATTERN. absent: Rales, Rhonchi - Cardiovascular Exam Cardiovascular Exam: REGULAR RHYTHM, +S1, +S2. absent: Irregular Rhythm, Rubs - GI/Abdominal Exam GI & Abdominal Exam: Normal Bowel Sounds, Soft. absent: Distended, Guarding, Tenderness - Extremities Exam Extremities exam: normal inspection - Back Exam Additional comments: mild paraspinal tenderness - Neurological Exam Neurological exam: Alert, CN II-XII Intact, Normal Gait, Oriented x3 - Psychiatric Exam Psychiatric exam: Normal Affect, Normal Mood - Skin Skin Exam: Dry, Intact, Normal Color Discharge Plan - Follow Up Plan Condition: FAIR Disposition: HOME/ ROUTINE Instructions: Heart Healthy Diet, Syncope (Fainting) (DC), Near Fainting (DC), Syncope (DC), Syncope (GEN) Additional Instructions: Patient is clear for discharge per Dr. Burciaga. Patient is to continue all home meds and is not being discharged with any new medications. Patient is to follow up with Dr. Burciaga to establish PMD care. He should also follow up with Dr. Hansen to see how his lipoma removal is going. If symptoms return or worsen, please return to the ED. El paciente est despejado para la descarga por el Dr. burciaga. El paciente debe continuar con todos los medicamentos para el hogar y no est siendo dado de harry con ningn medicamento nuevo. El paciente es el seguimiento con el Dr. burciaga para establecer el cuidado de PMD. Tambin debe hacer un seguimiento con el Dr. 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 Si los sntomas vuelven o empeoran, por favor regrese al Ed. Referrals: Rafael Hansen MD [Staff Provider] - Edwar Burciaga Jr., MD [Medical Doctor] -
--- NOTE | 2017-12-21 23:35 | CARD ---
APPROVED REPORT Date of service: 12/21/2017 EXAM: Two-dimensional and M-mode echocardiogram with Doppler and color Doppler. Other Information Quality : GoodRhythm : INDICATION Chest Pain Syncope RISK FACTORS Hypertension Hyperlipidemia 2D DIMENSIONS IVSd0.9 (0.7-1.1cm)Aortic Root (2D)3.4 (2.0-3.7cm) LVDd4.9 (3.9-5.9cm)PWd0.8 (0.7-1.1cm) LVDs3.0 (2.5-4.0cm)FS (%) 39.0 % LVEF (%)69.2 (>50%) M-Mode DIMENSIONS RVDd2.09 (2.1-3.2cm)Left Atrium (MM)3.77 (2.5-4.0cm) IVSd0.88 (0.7-1.1cm)Aortic Root3.44 (2.2-3.7cm) LVDd4.77 (4.0-5.6cm)Aortic Cusp Exc.1.97 (1.5-2.0cm) PWd0.95 (0.7-1.1cm)FS (%) 41 % LVDs2.82 (2.0-3.8cm)LVEF (%)72 (>50%) Mitral Valve MV E Tmyqfkbe12.4cm/sMV A Hyisottb41.8cm/sE/A ratio1.4 TDI E/Lateral E'0.0E/Medial E'0.0 Tricuspid Valve TR Peak [id number]/sTR Peak Gr.[id number] LEFT VENTRICLE The left ventricle is normal size. There is normal left ventricular wall thickness. Left ventricle systolic function is normal. The Ejection Fraction is 60-65%. There is normal LV segmental wall motion. The left ventricular diastolic function is normal. There is no ventricular septal defect visualized. RIGHT VENTRICLE The right ventricle is normal size. The right ventricular systolic function is normal. ATRIA The left atrium size is normal. The right atrium size is normal. AORTIC VALVE The aortic valve is mildly sclerotic. The aortic valve is probably trileaflet. No aortic regurgitation is present. There is no aortic valvular stenosis. MITRAL VALVE The mitral valve leaflets are thickened. There is no evidence of mitral valve prolapse. Mitral regurgitation is trace. TRICUSPID VALVE The tricuspid valve is normal in structure. There is trace tricuspid regurgitation. Right ventricular systolic pressure is estimated at less than 30 mmHg. There is no pulmonary hypertension. PULMONIC VALVE The pulmonary valve is normal in structure. There is trace pulmonic valvular regurgitation. GREAT VESSELS The aortic root is normal in size. The ascending aorta is normal in size. The IVC is normal in size and collapses >50% with inspiration. PERICARDIAL EFFUSION There is no pericardial effusion. <Conclusion> Left ventricle systolic function is normal. The Ejection Fraction is 60-65%. The left ventricular diastolic function is normal. Mitral regurgitation is trace.
--- NOTE | 2017-12-22 00:01 | CARD ---
APPROVED REPORT Date of service: 12/20/2017 EKG Measurement Heart [id number] <Conclusion> Normal sinus rhythm Possible Left atrial enlargement Borderline ECG
--- NOTE | 2017-12-22 00:01 | CARD ---
APPROVED REPORT Date of service: 12/20/2017 EKG Measurement Heart [id number] <Conclusion> Normal sinus rhythm Normal ECG
--- NOTE | 2017-12-22 20:28 | CARD ---
APPROVED REPORT Date of service: 12/21/2017 EKG Measurement Heart [id number] [place] [id number] <Conclusion> Normal sinus rhythm with sinus arrhythmia Normal ECG
== END 2017-12-21 17:22 | disposition home or self-care (01) ==
LOC: C.ER 12:21 → C.9E 14:50 → C.6T 17:04
PROVIDERS: ADMIT Internal Medicine; ATTEND Internal Medicine
DX: R55 Syncope and collapse (principal); D17.9 Benign lipomatous neoplasm, unspecified; E78.00 Pure hypercholesterolemia, unspecified; E78.5 Hyperlipidemia, unspecified; F32.9 Major depressive disorder, single episode, unspecified; G43.909 Migraine, unspecified, not intractable, without status migrainosus; G62.9 Polyneuropathy, unspecified; I10 Essential (primary) hypertension; I20.9 Angina pectoris, unspecified; N40.0 Benign prostatic hyperplasia without lower urinary tract symptoms
CPT/HCPCS: 36415; 70450; 71045; 80053; 80061; 81001; 83036; 83735; 83880; 84443; 84484; 85025; 85610; 85730; 93005; 93306; 99285; G0378; J1644